=== PATIENT | female | born 1930 | race Caucasian/White ===

== ENCOUNTER 2016-09-27 18:19 | Emergency (ER) | payer OTHER ==
--- NOTE | 2016-09-27 18:29 | EDPHY ---
H & P Time Seen by Provider: 09/27/16 18:28 HPI/ROS: CHIEF COMPLAINT: Mechanical fall HISTORY OF PRESENT ILLNESS: This patient is an 86-year-old female who presents to the Emergency Department via EMS complaining of left upper extremity pain secondary to a mechanical fall shortly prior to arrival. She reports that she tripped, catching herself with her left hand. She did not hit her head when she fell. Denies trauma to abdomen, chest, neck, or back. At time of presentation, she describes moderate pain and swelling to her left wrist and mild aching pain to her left shoulder. She is unable to move her wrist without significant pain. She has no additional complaints. No pertinent medical history. No anticoagulant use. REVIEW OF SYSTEMS: Constitutional: No weakness Eyes: No visual changes or eye pain ENT: No dental trauma Neck: No pain or injury Respiratory: No shortness of breath Cardiac: No chest pain Gastrointestinal: No abdominal pain, no vomiting Back: No pain or injury Genitourinary: No hematuria Musculoskeletal: As in HPI Skin: No lacerations Neurological: No headache, no dizziness Past Medical/Surgical History: Hypothyroidism (Synthroid) Social History: Lives independently. Non-smoker. Physical Exam: General Appearance: Alert, no distress Head: Atraumatic Eyes: No conjunctival erythema, PERRLA, EOMI ENT, Mouth: No hemotypanum, no oral trauma, no bony tenderness Neck: Non-tender, full range of motion without pain Respiratory: No chest wall tenderness, lungs clear bilaterally Cardiovascular: Regular rate and rhythm Abdomen: Abdomen is soft and non tender Skin: No lacerations, abrasion to the right knee Back: No midline T/L/S tenderness Extremities: Pelvis is stable and nontender; tenderness and deformity of the left wrist, tenderness over the left shoulder and left humerus Neurological: A&Ox3, normal motor function, normal sensory exam, cranial nerves intact Psychiatric: Mood and affect normal Constitutional: Initial Vital Signs Temperature (C) 36.8 C 09/27/16 18:20 Heart Rate 77 09/27/16 18:20 Respiratory Rate 16 09/27/16 18:20 Blood Pressure 215/90 H 09/27/16 18:20 O2 Sat (%) 95 09/27/16 18:20 O2 Delivery Mode Room Air Allergies/Adverse Reactions: No Known Allergies Allergy (Unverified 09/27/16 20:38) Home Medications: Medication Instructions Recorded Hydrocodone/APAP 5/325 [Crane 1 - 2 tab PO Q4H PRN #15 tab 09/27/16 5/325] Synthroid 09/27/16 Medical Decision Making - Diagnostics Imaging Results: Humerus X-Ray 09/27/16 18:40 Impression: Nondisplaced oblique fracture coursing through the proximal humeral shaft. Shoulder X-Ray 09/27/16 18:40 Impression: Nondisplaced proximal humeral shaft fracture. 2. Left Wrist, reviews History: Pain post trauma, fall Comparison: None Findings: There is an acute Colles' fracture of the distal radius and ulnar styloid. There is dorsal angulation of the distal radius by approximately 32 grams. 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 Impression: Colles' fracture with dorsal angulation. Wrist X-Ray 09/27/16 18:40 Impression: Nondisplaced proximal humeral shaft fracture. 2. Left Wrist, reviews History: Pain post trauma, fall Comparison: None Findings: There is an acute Colles' fracture of the distal radius and ulnar styloid. There is dorsal angulation of the distal radius by approximately 32 grams. 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 Impression: Colles' fracture with dorsal angulation. Imaging: I viewed and interpreted images myself Procedures: Procedure Colles fracture reduction: Sterile prep, then bupivacaine/lidocaine injected into the left wrist. Adequate analgesia. The fracture was reduced by me using distraction and wrist flexion. The mini C-arm was used and verified adequate reduction. A sugar-tong splint was placed. In addition an upper arm was placed for the humerus fracture. The patient was placed in a sling. Procedure: Splint placement. A sugar tong splint was applied to the left wrist by the tech. After application of the splint I returned and re-examined the patient. The splint was adequately immobilizing the joint and distal to the splint the patient's circulation and sensation was intact. ED Course/Re-evaluation: 86-year-old female with no significant medical history and no anticoagulant use presents via EMS after a mechanical fall with trauma to her left wrist and shoulder. No head trauma or additional injuries. She is hypertensive st 215/90 at time of arrival. On exam, she has a visible left wrist deformity with tenderness and left shoulder and tenderness over the humerus. There are no other apparent injuries. Will proceed with x-ray of the left wrist and left humerus. X-rays discussed with the patient. Differential Diagnosis: The differential diagnosis for the patient's trauma included but was not limited to intracranial injury, long bone and pelvic bone fractures, spinal injury, intra-abdominal injury, and intra-thoracic injury. - Data Points Medications Given: Discontinued Medications Acetaminophen (Tylenol) 650 mg PO EDNOW ONE Stop: 09/27/16 20:01 Last Admin: 09/27/16 20:00 Dose: 650 mg Hydrocodone Bitart/Acetaminophen (Crane 5/325mg Prepack#6) 1 btl TAKEHOME EDNOW ONE Stop: 09/27/16 20:39 Last Admin: 09/27/16 21:22 Dose: 1 btl Departure - Departure Disposition: Home, Routine, Self-Care Clinical Impression: Humerus fracture Qualifiers: Encounter type: initial encounter Humerus Location: surgical neck Fracture type : closed Fracture morphology: 2-part Fracture alignment: nondisplaced Laterality : left Qualified Code(s): S42.225A - 2-part nondisplaced fracture of surgical neck of left humerus, initial encounter for closed fracture Colles' fracture of left radius Qualifiers: Encounter type: initial encounter Fracture type: closed Qualified Code(s): S52.532A - Colles' fracture of left radius, initial encounter for closed fracture Condition: Good Instructions: Wrist Fracture in Adults (ED), Proximal Humerus Fracture (ED) Additional Instructions: 1. Take up to 650mg Tylenol every 4-6 hours as needed for pain. 2. Take one tab Crane every 4 hours as needed for severe pain. 3. Call tomorrow to schedule a follow-up appointment with orthopedist, Dr. Collier. 4. Rest and ice your injury. Wear your sling and your splint until your follow- up appointment. 5. Return to the Emergency Department with severe pain, significantly increased swelling, changes in the sensation to your hand or fingers, pale appearing arm or hand, or for other serious concerns. Referrals: Sherley Collier MD [Medical Doctor] - As per Instructions Prescriptions: Hydrocodone/APAP 5/325 [Crane 5/325] 1 - 2 tab PO Q4H PRN #15 tab PRN Reason: Pain, Moderate Report Scribed for: Romy Edgar Report Scribed by: Josette Rose Date of Report: 09/27/16 Time of Report: 18:28 Physician Review and Approval Statement: 09/27/16 18:28 Portions of this note were transcribed by a medical technicians. I personally performed a history, physical exam, medical decision making, and confirmed accuracy of information the transcribed note.
[2016-09-27] MEDS ORDERED: ACETAMINOPHEN 325 MG TAB ONE (19:38)
[2016-09-27] MEDS ORDERED: ACETAMINOPHEN 325 MG TAB PO ONE (20:00)
[2016-09-27] MEDS ORDERED: HYDROCOD/APAP 5/325 PREPACK#6 BTL TAKEHOME ONE (20:38)
[2016-09-27 21:25] VITALS: BP 160/91; PULSE 80; RESP 14; TEMP 98.4; O2SAT 94
== END 2016-09-27 21:22 | disposition home or self-care (01) ==
LOC: EDUNIT#
PROC: 0PSJXZZ Reposition Left Radius, External Approach (ICD-10-PCS; principal; 2016-09-27)
DX: S52.532A Colles' fracture of left radius, initial encounter for closed fracture (principal); S42.225A 2-part nondisplaced fracture of surgical neck of left humerus, initial encounter for closed fracture; W01.0XXA Fall on same level from slipping, tripping and stumbling without subsequent striking against object, initial encounter; Y99.8 Other external cause status
CPT/HCPCS: 25605; 73030; 73060; 73110; 99283; A4565

== ENCOUNTER 2016-10-17 11:56 | Observation (INO) | payer OTHER ==
--- NOTE | 2016-10-17 09:34 | GHP ---
[f rep st] HISTORY AND PHYSICAL CURRENT COMPLAINT: Left wrist pain and left shoulder pain. HISTORY OF PRESENT ILLNESS: The patient is an 86-year-old female who fell yesterday. She had a red uction performed of a left radius fracture, a sling for her left proximal humerus fracture. 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 She would prefer fixation of the wrist in order to have the pote ntial to maintain as much motion as possible. PHYSICAL EXAM: EYES: Pupils equal, round, reactive to light. CHEST: Clear to auscultation. HEAR T: Regular rate and rhythm. ABDOMEN: Soft and nontender. She remains neurologically intact to th e radial, median, and ulnar nerves of the wrist. IMAGING: X-ray exam reveals a distal radius fracture that has lost its reduction into extension and a proximal humerus fracture at the surgical neck. ASSESSMENT AND PLAN: The patient is status post left proximal humerus fracture and left distal radi us fracture. She is to be brought to the operating room to undergo a closed reduction and percutane ous pinning of the left distal radius. /[id number]/MODL
[2016-10-17] MEDS ORDERED: LIDOCAINE 1% 2 ML INJ ID PRN (12:25)
[2016-10-17] MEDS ORDERED: LR 1,000 ML IV ONE (12:25)
[2016-10-17] MEDS ORDERED: BUPIVACAINE 0.5% 30 ML SDV ONE (13:14)
--- NOTE | 2016-10-17 13:27 | PDANEPAE ---
ANE History of Present Illness CRPP R wrist ANE Past Medical History - Cardiovascular History Hx Hypertension: No Hx Arrhythmias: No Hx Chest Pain: No Hx Coronary Artery / Peripheral Vascular Disease: No Hx CHF / Valvular Disease: No Hx Palpitations: No - Pulmonary History Hx COPD: No Hx Asthma/Reactive Airway Disease: No Hx Recent Upper Respiratory Infection: Yes Hx Oxygen in Use at Home: Yes O2 in Use at Home (L/minute): 2 Hx Sleep Apnea: No Sleep Apnea Screening Result - Last Documented: Negative Pulmonary History Comment: HYPOXEMIA AT HS - Neurologic History Hx Cerebrovascular Accident: No Hx Seizures: No Hx Dementia: No Neurologic History Comment: SERIES OF CLOSED HEAD INJURIES. MOST RECENT 04/2016 - Endocrine History Hx Diabetes: No Endocrine History Comment: HYPOTHYROID - Renal History Hx Renal Disorders: No - Liver History Hx Hepatic Disorders: No - Neurological & Psychiatric Hx Hx Neurological and Psychiatric Disorders: No - Cancer History Hx Cancer: No - Congenital Disorder History Hx Congenital Disorders: No - GI History Hx Gastrointestinal Disorders: No - Other Health History Other Health History: FX LT SHLDR 08/2016 PROBLEMS WITH LIMITED ROM PRIOR TO THIS. SEVERE SCOLOSIS. VISION ISSUES SINCE FALL 08/2016 - Chronic Pain History Chronic Pain: Yes (CHRONIC BACK) - Surgical History Prior Surgeries: LT TOTAL HIP 2008. LT TOTAL KNEE. HENRY CATARACT. TONSILLECTOMY ANE Review of Systems - Exercise capacity METS (RN): 4 METS ANE Patient History - Allergies Allergies/Adverse Reactions: adhesive tape Allergy (Verified 10/17/16 12:51) tapentadol [From Nucynta] Allergy (Verified 10/16/16 12:17) WAY TO STRONG FOR PATIENT - Home Medications Home Medications: Synthroid DAILY06 09/27/16 [Last Taken 10/17/16 07:30] ACETAMINOPHEN BID 10/16/16 [Last Taken 10/17/16 10:30] Aleve BID 10/16/16 [Last Taken 10/16/16 07:30] Herbal Drugs DAILY 10/16/16 [Last Taken 10/16/16 07:00] Turmeric 10/17/16 [Last Taken 10/15/16 09:00] - NPO status NPO Since - Liquids (Date): 10/17/16 NPO Since - Liquids (Time): 11:50 NPO Since - Solids (Date): 10/16/16 NPO Since - Solids (Time): 18:30 - Anes Hx Anes Hx: slow to awaken from anesthesia Hx Anesthesia Complications (with details): sensitive - Smoking Hx Smoking Status: Never smoked - Alcohol Use Alcohol Use: None ANE Labs/Vital Signs - Vital Signs Blood Pressure: 146/87 Heart Rate: 75 Respiratory Rate: 15 O2 Sat (%): 95 Height: 162.56 cm Weight: 66.678 kg ANE Physical Exam - Airway Neck exam: FROM Mallampati Score: Class 2 Mouth exam: normal dental/mouth exam - Pulmonary Pulmonary: no respiratory distress - Cardiovascular Cardiovascular: regular rate and rhythym - ASA Status ASA Status: II ANE Anesthesia Plan Anesthesia Plan: GA with mask (propofol GA, all questions answered, concern about humeral fracture and surgical positioning)
[2016-10-17] MEDS ORDERED: LIDOCAINE 2% 100 MG/5 ML SYR ONE (14:02)
[2016-10-17] MEDS ORDERED: fentaNYL 100 MCG/2 ML INJ ONE (14:02)
[2016-10-17] MEDS ORDERED: DEXAMETHASONE 4 MG/ML VIAL ONE (14:02)
[2016-10-17] MEDS ORDERED: PROPOFOL/EMULSION 500 MG/50 ML BOTTLE IV ONE (14:02)
[2016-10-17] MEDS ORDERED: ONDANSETRON 4 MG/2 ML VIAL ONE (14:02)
--- NOTE | 2016-10-17 14:06 | PDHPUP ---
History & Physical Update H&P update statement: This history and physical update is based on an assessment of the patient which was completed after admission or registration (within 24 hours), but prior to the surgery/procedure. H&P update: H&P reviewed & patient examined, no change in patient's condition since H&P completed
[2016-10-17] MEDS ORDERED: LIDOCAINE 1% 300 MG/30 ML SDV ONE (14:08)
[2016-10-17] MEDS ORDERED: LIDOCAINE 2% JELLY 5 ML TUBE ONE (14:12)
[2016-10-17] MEDS ORDERED: ceFAZolin 1 GM VIAL ONE (14:24)
[2016-10-17] MEDS ORDERED: fentaNYL 100 MCG/2 ML INJ IVP PRN ×2 (14:44)
[2016-10-17] MEDS ORDERED: ONDANSETRON 4 MG/2 ML VIAL IVP PRN ×3 (14:44→17:09)
[2016-10-17] MEDS ORDERED: ALBUTEROL 3 ML DEYVIAL IH PRN (14:44)
[2016-10-17] MEDS ORDERED: NALOXONE HCL 0.4 MG/ML INJ IVP PRN (14:44)
[2016-10-17] MEDS ORDERED: DEXAMETHASONE 4 MG/ML VIAL IVP PRN (14:44)
[2016-10-17] MEDS ORDERED: ACETAMINOPHEN 500 MG TAB PO PRN (14:44)
--- NOTE | 2016-10-17 15:04 | POSTOPPROG ---
Post Op Note Date of Operation: 10/17/16 Surgeon: Sherley Collier Anesthesiologist: dominique Anesthesia: IV Sedation Pre-op Diagnosis: l wrist fx Procedure: l wrist CRPP with fluoro Inf/Abcess present in the surg proc area at time of surgery?: No Depth: Deep Incisional (Fascial) EBL: Minimal
[2016-10-17] MEDS ORDERED: traMADol 50 MG TAB PO PRN ×2 (15:07→17:15)
[2016-10-17] MEDS ORDERED: traMADol 50 MG TAB ONE (15:12)
[2016-10-17] MEDS ORDERED: oxyCODONE IR 5 MG TAB PO PRN (17:09)
[2016-10-17] MEDS ORDERED: ONDANSETRON DISINTEGRATING 4 MG TAB PO PRN (17:09)
--- NOTE | 2016-10-17 17:35 | GHP ---
[f rep st] HISTORY AND PHYSICAL DATE OF ADMISSION: 10/17/2016 CHIEF COMPLAINT: Hypertension. HISTORY OF PRESENT ILLNESS: This is an 86-year-old female who, a couple weeks ago, was lying on the ground, stood up really quickly, had almost a syncopal event, and fell and fractured her wrist. Luna green then came in for elective surgery today. Anesthesia had noticed that her blood pressure was eleva wilton preop, and is now postoperatively in the 200 range. It was also elevated when she was in the em ergency department. Patient does not have a known history of hypertension; although, she states suleiman t her blood pressures have been in the 140s to 150s in the past. She has been switching around [facility] physicians and so has not seen one for some time. She is denying any shortness of breath, chest pain, or vision changes. 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 She denies any abdominal pain or dysuria. REVIEW OF SYSTEMS: A 10-point review of systems obtained, other than stated above is negative. PAST MEDICAL HISTORY: 1. Hypothyroidism. 2. Osteoporosis. 3. Scoliosis. 4. 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 MEDICATIONS: Reviewed. SOCIAL HISTORY: No smoking or alcohol. She is and was planning to go to [facility] for respite after her operation, but they do not take new patients after 5:00. FAMILY HISTORY: Both parents are . PHYSICAL EXAMINATION: VITAL SIGNS: Afebrile. Blood pressure is 199/86, heart rate 66, oxygen satu ration 99% on room air. GENERAL: Patient is well developed and in no apparent distress. HEENT: An icteric sclerae. Extraocular movements intact. Moist mucous membranes. NECK: Supple. No thyrome jordy. LUNGS: Good effort. Clear to auscultation bilaterally. CARDIOVASCULAR: Regular rate and r hythm. No murmurs or gallops. ABDOMEN: Positive bowel sounds. Soft, nontender, nondistended. No hepatosplenomegaly. EXTREMITIES: No clubbing, cyanosis, or edema. SKIN: Without rash. Dry and intact. NEURO: Alert and oriented x3. Moving all 4 extremities equally. PSYCH: Normal mood and a ffect. DIAGNOSTICS: No recent labs have been drawn. ASSESSMENT: The patient is an 86-year-old female presenting with persistent hypertension and unable to be admitted to respite care after her wrist surgery. PLAN: 1. Hypertension: Patient states she is very sensitive to medications and thus will give her a very small dose of Norvasc tonight and see what her blood pressure does. We could increase that tonight or tomorrow if it is not getting her blood pressure down to more comfortable levels. Will check so me basic blood work, including creatinine, tomorrow as well. 2. Recent wrist surgery. Patient would be able to go to respite tomorrow. 3. Hypothyroidism. 4. Admission: Patient will be admitted on observation status. Case discussed with Anesthesia. /[id number]/MODL
--- NOTE | 2016-10-17 18:11 | POSTANESTH ---
Post Anesthetic Evaluation Cardiovascular Status: Tx Hyper/Hypo-tension (admit for sbp >200 and dbp>90 thanks for hospitalists help) Respiratory Status: Normal, Stable Level of Consciousness/Mental Status: Can Participate in Eval Pain Control: Adequate, Prn Tx Ordered Nausea/Vomiting Control: Adequate, Prn Tx Ordered Complications Possibly Related to Anesthesia: None Noted
[2016-10-17] MEDS: ACETAMINOPHEN 500 MG TAB PO PRN (22:02)
[2016-10-18 04:54] LABS: % IMMATURE GRANULYOCYTES 0.7 % (0.0-1.1); ABSOLUTE IMMATURE GRANULOCYTES 0.04 10^3/uL (0.00-0.10); ADD DIFF? NO; ADD MORPH? NO; ADD SCAN? NO; ATYPICAL LYMPHOCYTE FLAG 0 (0-99); FRAGMENT RBC FLAG 0 (0-99); HEMATOCRIT 33.8 % (38.0-47.0); HEMOGLOBIN 11.3 g/dL (12.6-16.3); LEFT SHIFT FLG 0 (0-99); LIPEMIA HEMOLYSIS FLAG 80 (0-99); MEAN CELL HEMOGLOBIN 31.1 pg (27.9-34.1); MEAN CELL HEMOGLOBIN CONCENTR. 33.4 g/dL (32.4-36.7); MEAN CELL VOLUME 93.1 fL (81.5-99.8); MEAN PLATELET VOLUME 8.9 fL (8.7-11.7); PLATELET CLUMPS FLAG 10 (0-99); PLATELET COUNT 263 10^3/uL (150-400); RED BLOOD CELL COUNT 3.63 10^6/uL (4.18-5.33); RED CELL DISTRIBUTION WIDTH 14.4 % (11.5-15.2)
[2016-10-18 05:03] LABS: ALANINE AMINOTRANSFERASE 27 IU/L (9-52); ALBUMIN 3.4 g/dL (3.5-5.0); ALKALINE PHOSPHATASE 86 IU/L (38-126); ANION GAP 9 mEq/L (8-16); ASPARTATE AMINOTRANSFERASE 23 IU/L (14-46); BILIRUBIN,TOTAL 0.6 mg/dL (0.1-1.4); CALCIUM 9.3 mg/dL (8.5-10.4); CARBON DIOXIDE 24 mEq/l (22-31); CHLORIDE 107 mEq/L (97-110); CREATININE 0.8 mg/dL (0.6-1.0); GLOMERULAR FILTRATION RATE > 60; GLUCOSE 100 mg/dL (70-100); POTASSIUM 4.8 mEq/L (3.5-5.2); SODIUM 140 mEq/L (134-144); TOTAL PROTEIN 5.8 g/dL (6.3-8.2)
[2016-10-18] MEDS: ACETAMINOPHEN 500 MG TAB PO PRN ×2 (06:34→10:23)
[2016-10-18] MEDS ORDERED: LIOTHYRONINE SODIUM 5 MCG TAB PO SCH (09:00)
--- NOTE | 2016-10-18 09:33 | GOP ---
[f rep st] OPERATIVE REPORT DATE OF OPERATION: 10/17/2016 SURGEON: Sherley Collier MD ANESTHESIA: By mask with sedation. PREOPERATIVE DIAGNOSIS: Left distal radius fracture. POSTOPERATIVE DIAGNOSIS: Left distal radius fracture. PROCEDURE PERFORMED: Left wrist closed reduction and percutaneous pinning, with fluoroscopy. FINDINGS: INDICATIONS: This is an 86-year-old female who fell at home, was seen in the emergency room, had a displaced distal radius fracture. She was splinted. She was noted to have a significant amount of extension deformity. 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 She would like to p roceed with surgery. DESCRIPTION OF PROCEDURE: Patient brought to the operating room after the left side had been identi fied as the correct side by the patient, nurse, and physician. Once in the operating room, she had her splint removed after she had been sedated with mask anesthesia. She had a hematoma block placed at the area of the distal radius fracture. The distal radius fracture was able to be reduced. It was checked under fluoroscopy and noted to be in good position. Therefore, a 2-0 K-wire was passed through the radial styloid into the proximal shaft of the radius and exiting approximately 2 mm, and then 2 different 2-0 K-wires were passed through the dorsal portion of the fracture on the radial s charles and the ulnar side near the DRUJ and exiting approximately 1-2 mm to the anterior cortex of the proximal fragment. Once in place, fluoroscopy was used to ensure proper positioning of the wires. Once this was ensured and noted she had a stable fixation, the wires were bent close to the skin and cut short. The area around the puncture sites was dressed with Xeroform, 4 x 4's, wrapped in Webri l. The arm was completely undraped in the operating room, tourniquet removed from the arm. A short -arm volar and dorsal plaster splint was put into place with the wrist kept in 45 degrees of flexion . She then had Feliz wrap placed around the splint. She then had the left upper extremity placed wit hin a sling. She was then woken up, transferred onto a stretcher, and sent to the recovery room in good condition. TOURNIQUET TIME: Zero. /[id number]/MODL
--- NOTE | 2016-10-18 10:40 | HOSPPROG ---
Hospitalist Progress Note Assessment/Plan: Patient is an 86-year-old female who has a past medical history of a traumatic brain injury in April this year, osteoporosis and hypothyroidism. She came in for elective surgery after sustaining a wrist fracture. Her blood pressure was elevated. Today is my 1st encounter with the patient. Chart reviewed. * hypertension Patient is concerned that she is very sensitive to blood pressure medications Started on low-dose Norvasc with good results she is feeling light headed with a systolic in the 120's will decrease Norvasc dose/ suspect she does best with systolic bp in the 140 's * left distal radius fracture. Postop day 1. Status post reduction and pinning plan is to go to [facility] [place] x 3 days for Respid care/ thinking she will need more time there/lives alone *Plan: CM to see / to f/u with [facility] OT to see if she has a platform walker for home use/hopefully, can go to [facility] today/ will check later to see if she is less lightheaded Subjective: Melanie is c/o some light headedness. Objective: Vital Signs Temp Pulse Resp BP Pulse Ox 36.5 C 60 16 125/65 H 97 10/18/16 07:37 10/18/16 07:37 10/18/16 07:37 10/18/16 08:11 10/18/16 07:37 Laboratory Results 10/18/16 04:20 10/18/16 04:20 10/17/16 10/18/16 10/19/16 05:59 05:59 05:59 Intake Total 700 Output Total 1250 Balance -550 - Physical Exam Constitutional: no apparent distress, not in pain Eyes: PERRL Ears, Nose, Mouth, Throat: hearing normal Cardiovascular: regular rate and rhythym Respiratory: no respiratory distress Gastrointestinal: normoactive bowel sounds Skin: warm, other (good cms on left hand) Neurologic: AAOx3 Psychiatric: interacting appropriately, anxious ICD10 Worksheet Patient Problems: Problems Problem Status Onset Colles' fracture of left radius Acute Humerus fracture Acute
[2016-10-18 13:07] VITALS: BP 119/59; PULSE 66; RESP 18; TEMP 98.2; O2SAT 94
--- NOTE | 2016-10-18 13:27 | PDIAF ---
- Diagnosis Diagnosis: left distal radius fx s/p reduction and pinning,new dx of htn - Medication Management Discharge Medications: Medications to Continue on Transfer Acetaminophen [Tylenol ES 500 mg (*)] 1,000 mg PO Q8H PRN 10/17/16 [Last Taken 10/17/16 10:30] Levothyroxine [Synthroid 137 mcg (*)] 137 mcg PO DAILY06 10/17/16 [Last Taken 07:30] Liothyronine Sodium [Cytomel 5 mcg (*)] 5 mcg PO DAILY 10/17/16 [Last Taken 07:30] Naproxen Sodium [Aleve 220 MG (*)] 220 mg PO BID PRN 10/17/16 [Last Taken 07:30] Acetaminophen [Tylenol ES 500 mg (*)] 500 - 1,000 mg PO Q6HRS PRN #0 tab [Last Taken Unknown] amLODIPine BESYLATE [Norvasc 2.5 mg (*)] 2.5 mg PO DAILY #30 tab 10/18/16 [Last Taken Unknown] Discharge Medications: Refer to the Discharge Home Medication list for PRN reason. - Orders Services needed: Home Care, Registered Nurse, Physical Therapy, Occupational Therapy Home Care Face to Face: I certify that this patient was under my care and that I had the required [id number] encounter meeting the encounter requirements on the discharge day. My findings support the fact that the patient is homebound as defined in CMS Chapter 7 Medicare Benefits Manual 30.1.1, The condition of the patient is such that there exists a normal inability to leave home and consequently, leaving home would require a considerable and taxing effort. Equipment: recommending a platform walker Additional: hold norvasc for systolic bp <125 - Follow Up Care Current Providers and Referrals: FERNANDO HITCHCOCK [Primary Care Provider] - Selwyn Ozuna MD [Medical Doctor] -
--- NOTE | 2016-10-19 00:10 | GDS ---
[f rep st] DISCHARGE SUMMARY DISCHARGE DIAGNOSES: 1. Uncontrolled hypertension. 2. Left distal radius fracture status post reduction and pinning. Briefly, patient is an 86-year-old female, who has a past medical history of a traumatic brain injury in April of this year, osteoporosis and hypothyroidism. She came in for elective surgery after sustaining a wrist fracture. The hospitalist team was asked to evaluate her in regard to her hypertension. Today, her blood pressure is much improved. She will be discharged to [facility] and further followup with Dr. Sherley Collier. HOSPITAL COURSE: 1. Hypertension. Blood pressure is much better. It may be a bit low for her. I reduced the Norvasc dosing and told her to hold it if her systolic is less than 125. 2. Left distal radius fracture. She is postop day #1 status post reduction and pinning. She will go to [facility]. PENDING LABS AND TESTS: None. CONDITION AT DISCHARGE: Stable. Blood pressure is 125/65, O2 sats on room air 97%, respiratory rate is 16, pulse is 60, temperature 36.5 Celsius. DISCHARGE MEDICATIONS: Please see the EMR. DISCHARGE INSTRUCTIONS: 1. Recommend that she follow up with Dr. Ozuna. She would like close monitoring of her blood pressure. She is concerned about taking medications. 2. Stay well hydrated. 3. If she develops fever, chills, chest pain or shortness of breath, return to the ER. /[id number]/MODL MTDD
[2016-10-19] MEDS ORDERED: LEVOTHYROXINE 137 MCG TAB PO SCH (06:00)
== END 2016-10-18 16:09 ==
LOC: FSGY 11:56 → F3N 17:09
PROVIDERS: ADMIT Internal Medicine; ATTEND Internal Medicine
PROC: 0PSJ34Z Reposition Left Radius with Internal Fixation Device, Percutaneous Approach (ICD-10-PCS; principal; 2016-10-17 13:15)
DX: S52.502A Unspecified fracture of the lower end of left radius, initial encounter for closed fracture (principal); S42.215A Unspecified nondisplaced fracture of surgical neck of left humerus, initial encounter for closed fracture; W19.XXXA Unspecified fall, initial encounter; Y92.019 Unspecified place in single-family (private) house as the place of occurrence of the external cause; Y99.8 Other external cause status; E03.9 Hypothyroidism, unspecified; I10 Essential (primary) hypertension; M81.0 Age-related osteoporosis without current pathological fracture; M41.9 Scoliosis, unspecified; Z87.820 Personal history of traumatic brain injury; Z96.642 Presence of left artificial hip joint; Z96.652 Presence of left artificial knee joint
CPT/HCPCS: 25606; 97161; 97166; 97535; C1769; G8978; G8979; G8987; G8988; J0690; J1100; J2001; J2405; J2704; J3010; G8989-GO-CL

== ENCOUNTER 2016-10-21 13:42 | Emergency (ER) | payer OTHER ==
--- NOTE | 2016-10-21 14:19 | CPEKG ---
Heart Rate: 89 RR Interval: 674 P-R Interval: 164 QRSD Interval: 98 QT Interval: 388 QTC Interval: 473 P [place]: 24 QRS [place]: -56 T Wave [place]: 58 EKG Severity - ABNORMAL ECG - EKG Impression: SINUS RHYTHM EKG Impression: LEFT ANTERIOR FASCICULAR BLOCK Electronically Signed By: Selwyn Ozuna 23-Oct-2016 14:33:00
--- NOTE | 2016-10-21 14:57 | EDPHY ---
H & P Time Seen by Provider: 10/21/16 14:14 HPI/ROS: CHIEF COMPLAINT: Elevated blood pressure HISTORY OF PRESENT ILLNESS: 86-year-old female presents to the emergency department by private vehicle with family at bedside with history of elevated blood pressure. The patient was seen in the emergency department approximately 2 weeks ago after she had a mechanical fall and sustained a left humerus and left wrist fracture. She had operative repair by Dr. Sherley Collier 4 days ago on her left wrist. She is recovering at [facility] and has been having her blood pressure checked frequently. Apparently since the surgery, her blood pressure has been elevated over 200. She was started on Norvasc 2.5 mg in the hospital when she was recovering from surgery just a few days ago. She is concerned that her blood pressure is still elevated. She was sent to the emergency department for evaluation. She has no chest pain or difficulty breathing. No headache. REVIEW OF SYSTEMS: Constitutional: No fever, no chills. Eyes: No double or blurry vision. ENT: No sore throat. Respiratory: No cough, no shortness of breath. Cardiac: No chest pain. Gastrointestinal: No abdominal pain, vomiting or diarrhea. Genitourinary: No dysuria. Musculoskeletal: No neck or back pain. Skin: No rashes. Neurological: No headache. Past Medical/Surgical History: Hypothyroidism with recent decrease in her levothyroxine, left humerus and left wrist fracture. Surgical repair of left wrist by Dr. 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 Family at bedside. Blood pressure 146/ 94, 95% on room air. Afebrile. No apparent distress. Eyes: Pupils equal and round. Extraocular motions are all intact. ENT: Mouth: Mucous membranes moist. Respiratory: No wheezing, rhonchi, or rales, lungs are clear to auscultation. Cardiovascular: Regular rate and rhythm. Gastrointestinal: Abdomen is soft and nontender, no masses, no rebound or guarding, bowel sounds normal. Neurological: Alert and oriented x 3, cranial nerves II through XII grossly intact Skin: Warm and dry, no rashes. Musculoskeletal: Nontender to palpate along the cervical, thoracic or lumbar spine. Neck is supple. Extremities: Limited range of motion of the left upper extremity with Ortho Glass splint applied to the left wrist and left sling noted. Full range of motion of her lower extremities and her right upper extremity. Psychiatric: Patient is oriented X 3, there is no agitation. Constitutional: Initial Vital Signs Temperature (C) 36.8 C 10/21/16 13:48 Heart Rate 97 10/21/16 13:48 Respiratory Rate 16 10/21/16 13:48 Blood Pressure 146/94 H 10/21/16 13:48 O2 Sat (%) 95 10/21/16 13:48 O2 Delivery Mode Room Air Allergies/Adverse Reactions: adhesive tape Allergy (Verified 10/17/16 12:51) tapentadol [From Nucynta] Allergy (Verified 10/16/16 12:17) WAY TO STRONG FOR PATIENT Home Medications: Medication Instructions Recorded Acetaminophen [Tylenol ES 500 mg 1,000 mg PO Q8H PRN 10/17/16 (*)] Levothyroxine [Synthroid 137 mcg 137 mcg PO DAILY06 10/17/16 (*)] Liothyronine Sodium [Cytomel 5 mcg 5 mcg PO DAILY 10/17/16 (*)] Naproxen Sodium [Aleve 220 MG (*)] 220 mg PO BID PRN 10/17/16 Acetaminophen [Tylenol ES 500 mg 500 - 1,000 mg PO Q6HRS PRN #0 tab 10/18/16 (*)] amLODIPine BESYLATE [Norvasc 2.5 2.5 mg PO DAILY #30 tab 10/18/16 mg (*)] Medical Decision Making ED Course/Re-evaluation: 86-year-old female presents to the emergency department with concerns about elevated blood pressure. The patient has a history of recently starting Norvasc 2.5 mg. The patient has no physical complaints currently other than the pain in her left shoulder and left wrist from her fall 2 weeks ago. She recently had surgery in her left wrist. The case was discussed with Dr. Robinson Yu, secondary supervising physician, who did not directly evaluate the patient but agrees with treatment and plan. Agrees with discharging the patient home. She will follow up with her primary care provider as well as floating derrick operator. The patient is requesting follow up with Dr. Selwyn Ozuna. I spoke with the on-call floating derrick operator, Dr. Terry Mandel, and he recommended that the patient call and speak with Dr. Ozuna's nurse, Radha, to arrange for a follow-up appointment. Patient was comfortable with this plan. EKG was interpreted by Dr. Robinson Yu, see interpretation in trace master. Differential Diagnosis: Including but not limited to hypertension urgency, hypertension emergency, myocardial infarction, acute kidney injury Departure - Departure Disposition: Home, Routine, Self-Care Clinical Impression: Hypertension Qualifiers: Hypertension type: unspecified Qualified Code(s): I10 - Essential (primary) hypertension Condition: Good Instructions: Hypertension (ED) Additional Instructions: When you call [place] [facility], asked to speak with Radha who is Dr. Samano reveals nurse and tell them that you were seen in the emergency department and were told to follow up with Dr. Selwyn Ozuna regarding your blood pressure. Continue taking Norvasc as prescribed. Bring your blood pressure cuff with you to see your primary care provider and when you see the floating derrick operator to make sure that is calibrated correctly. Referrals: FERNANDO HITCHCOCK [Primary Care Provider] - As per Instructions
[2016-10-21 15:58] VITALS: BP 149/75; PULSE 81; RESP 18; TEMP 98.6; O2SAT 94
== END 2016-10-21 15:59 | disposition home or self-care (01) ==
DX: I10 Essential (primary) hypertension (principal)

== ENCOUNTER 2016-11-13 22:40 | Emergency (ER) | payer OTHER ==
[2016-11-13 23:08] VITALS: TEMP 98.2
--- NOTE | 2016-11-14 | EDPHY ---
H & P Stated Complaint: HAD CAST CHANGED TODAY,SWELLING HAND NOW, ALSO SWELLING FEET Time Seen by Provider: 11/13/16 23:35 HPI/ROS: Chief Complaint: Left hand swelling HPI: 86-year-old woman presenting with left hand swelling after having her cast change today at her orthopedics office. Patient has sustained a fall risk fracture and has hardware in place. Does evaluated today and her orthopedist's office and had her arm Re casted. Since then she has had increasing swelling in that hand. No numbness or tingling. No fevers or chills. Patient is also complaining some mild bilateral ankle swelling which has since resolved. ROS: 10 point Review of Systems is negative except as noted in the HPI. Social History: No smoking, no alcohol, no recreational drug use Family History: non-contributory Physical Exam: Gen: Awake, Alert, No Distress HEENT: Nose: no rhinorrhea Eyes: PERRLA, EOMI Mouth: Moist mucosa Neck: Supple, no JVD Chest: nontender, lungs clear to auscultation Heart: S1, S2 normal, no murmur Abd: Soft, non-tender, no guarding Back: no CVA tenderness, no midline tenderness Ext: no lower extremity edema, wrist cast is in place. There is mild swelling of the digits. There is no erythema. There is good capillary refill. Sensations intact. Skin: no rash Neuro: CN II-XII intact, Sensation grossly intact, Strength 5/5 in bilateral upper and lower extremities - Personal History Current Tetanus/Diphtheria Vaccine: Unsure - Medical/Surgical History Hx Asthma: No Hx Chronic Respiratory Disease: No Hx Diabetes: No Hx Cardiac Disease: No Hx Renal Disease: No Hx Cirrhosis: No Hx Alcoholism: No Hx HIV/AIDS: No Hx Splenectomy or Spleen Trauma: No Other PMH: PMH: HTN, hypothyriod, LEFT KNEE, LEFT HIP, TONSILS, FX LEFT HUMEROUS, FX LEFT FOREARM - Social History Smoking Status: Never smoked Constitutional: Initial Vital Signs Temperature (C) 36.8 C 11/13/16 22:40 Heart Rate 96 11/13/16 22:40 Respiratory Rate 22 H 11/13/16 22:40 Blood Pressure 205/105 H 11/13/16 22:40 O2 Sat (%) 95 11/13/16 22:40 O2 Delivery Mode Room Air Allergies/Adverse Reactions: adhesive tape Allergy (Verified 10/17/16 12:51) tapentadol [From Nucynta] Allergy (Verified 10/16/16 12:17) WAY TO STRONG FOR PATIENT METALS Allergy (Uncoded 11/13/16 22:59) Home Medications: Medication Instructions Recorded Acetaminophen [Tylenol ES 500 mg 1,000 mg PO Q8H PRN 10/17/16 (*)] Levothyroxine [Synthroid 137 mcg 137 mcg PO DAILY06 10/17/16 (*)] Liothyronine Sodium [Cytomel 5 mcg 5 mcg PO DAILY 10/17/16 (*)] Naproxen Sodium [Aleve 220 MG (*)] 220 mg PO BID PRN 10/17/16 Acetaminophen [Tylenol ES 500 mg 500 - 1,000 mg PO Q6HRS PRN #0 tab 10/18/16 (*)] amLODIPine BESYLATE [Norvasc 2.5 2.5 mg PO DAILY #30 tab 10/18/16 mg (*)] Medical Decision Making ED Course/Re-evaluation: Patient's cast has been split. She has been re-dressed with Feliz wrap. She is feeling better. She is discharged with follow up with Orthopedics. Departure - Departure Disposition: Home, Routine, Self-Care Clinical Impression: Hand swelling Condition: Good Instructions: Cast Care (ED) Additional Instructions: Follow up with your orthopedic surgeon tomorrow. Return emergency depart for increasing chest pain, shortness of breath, worsening headache, nausea, vomiting, numbness, tingling, or any other concerns. Referrals: Shaunna Bobby MD [Primary Care Provider] - As per Instructions Sherley Collier MD [Medical Doctor] - As per Instructions
[2016-11-14 00:58] VITALS: BP 163/80; PULSE 80; RESP 20; O2SAT 97
== END 2016-11-14 01:04 | disposition home or self-care (01) ==
LOC: EDUNIT#
DX: M79.89 Other specified soft tissue disorders (principal); I10 Essential (primary) hypertension

== ENCOUNTER 2016-11-16 18:18 | Emergency (ER) | payer OTHER ==
[2016-11-16 18:35] VITALS: BP 198/107; PULSE 85; RESP 14; TEMP 98.4; O2SAT 97
[2016-11-16] MEDS ORDERED: diphenhydrAMINE 25 MG CAP PO ONE (19:01)
--- NOTE | 2016-11-16 19:01 | EDPHY ---
H & P Time Seen by Provider: 11/16/16 18:21 HPI/ROS: CHIEF COMPLAINT: Facial and leg swelling and wrist swelling HISTORY OF PRESENT ILLNESS: This 86-year-old woman sustained a fall and left wrist and humerus fracture and had surgery on her left wrist on October 17. She was seen here on the 21 of October for hypertension and then on the 13 of November for left hand swelling. The patient is here tonight because she thinks she is having allergic reaction to the metal pins placed in her left wrist for her fracture. She was at the surgeon's office this week on Saturday but the physician was not available and she told me she did not have the hardware removed because she wanted the physician to do it and not the PA. Today she is here because she has some increased left forearm swelling. She feels like both of her legs have been swelling for the last month, she feels like she has some facial swelling and that her cheeks are bright red. She does not have tongue lip or throat swelling, trouble breathing, trouble swallowing, fever or chills. No abdominal pain cramping or vomiting. Symptoms moderate. No medications. She says she feels like she is "on fire in side of my body." REVIEW OF SYSTEMS: Eye: no change in vision ENT: no sore throat Cardiac: no chest pain or syncope Pulmonary: no cough or SOB Abdomen: no vomiting, diarrhea, abdominal pain Musculoskeletal: As in HPI Skin: No urticaria. Some redness on her cheeks. Neuro: no headache Constitutional: no fever : no urinary symptoms, normal urination. A comprehensive 10 point review of systems is otherwise negative aside from elements mentioned in the history of present illness. PAST MEDICAL HISTORY: Includes hypertension, thyroid disease, knee and hip surgery. Humerus fracture. Social history: Here with friend, nonsmoker General Appearance: Alert and conversant, cooperative. Eyes: No scleral icterus. ENT, Mouth: Normal mucous membranes. No angioedema and uvula normal. Respiratory: Normal respiratory effort, breath sounds equal, lungs are clear to auscultation. No wheezing. Cardiovascular: Regular rate and rhythm. Gastrointestinal: Abdomen is soft and non tender. Neurological: Alert and oriented x3. Normally conversant. Normal motor and sensory in both hands and both feet. Skin: Patient has a little bit of redness in both cheeks but no urticaria seen. No welts or hives. Face/cheeks not tender or hot. Musculoskeletal: 1+ bilateral peripheral edema symmetric, no calf tenderness, negative Homans. She has some edema on her left arm proximal to the cast and distally in her fingers but normal active and passive range of motion of all fingers and normal capillary refill and normal sensation to light touch. Psychiatric: Not agitated. Emergency Department course/MDM: 185: Discussed with Jr from Orthopedics.; recommended office follow-up next week, no action tonight. Oral Benadryl 25 mg. Patient 5 years ago after hip surgery had what she feels was an allergic reaction to metal which was only stopped by a medication prescribed by [facility] the name of which she can't remember, and by her tribal judge. I do not feel she has evidence of anaphylaxis tonight. I think it is reasonable for her to take oral Benadryl, as she has some mild face redness and swelling and she believes this is allergic reaction. I don't think her facial redness is from infection or cellulitis or erysipelas. I think it is unlikely that her bilateral symmetric lower extremity swelling represents DVT or CHF or renal problem. Smoking Status: Never smoked Constitutional: Initial Vital Signs Temperature (C) 36.9 C 11/16/16 18:33 Heart Rate 85 11/16/16 18:33 Respiratory Rate 14 11/16/16 18:33 Blood Pressure 198/107 H 11/16/16 18:33 O2 Sat (%) 97 11/16/16 18:33 O2 Delivery Mode Room Air Allergies/Adverse Reactions: adhesive tape Allergy (Verified 10/17/16 12:51) tapentadol [From Nucynta] Allergy (Verified 10/16/16 12:17) WAY TO STRONG FOR PATIENT METALS Allergy (Uncoded 11/13/16 22:59) Home Medications: Medication Instructions Recorded Acetaminophen [Tylenol ES 500 mg 1,000 mg PO Q8H PRN 10/17/16 (*)] Levothyroxine [Synthroid 137 mcg 137 mcg PO DAILY06 10/17/16 (*)] Liothyronine Sodium [Cytomel 5 mcg 5 mcg PO DAILY 10/17/16 (*)] Naproxen Sodium [Aleve 220 MG (*)] 220 mg PO BID PRN 10/17/16 Acetaminophen [Tylenol ES 500 mg 500 - 1,000 mg PO Q6HRS PRN #0 tab 10/18/16 (*)] amLODIPine BESYLATE [Norvasc 2.5 2.5 mg PO DAILY #30 tab 10/18/16 mg (*)] Medical Decision Making - Data Points Medications Given: Discontinued Medications Diphenhydramine HCl (Benadryl) 25 mg PO EDNOW ONE Stop: 11/16/16 19:02 Last Admin: 11/16/16 19:05 Dose: 25 mg Departure - Departure Disposition: Home, Routine, Self-Care Clinical Impression: Hypertension Colles' fracture of left radius Qualifiers: Encounter type: subsequent encounter Fracture type: closed Fracture healing: with routine healing Qualified Code(s): S52.532D - Colles' fracture of left radius, subsequent encounter for closed fracture with routine healing Condition: Good Instructions: Hypertension (ED) Additional Instructions: OK to take benadryl 25 mg by mouth up to 3 times a day for the next 5 days. Return if you get trouble breathing, trouble swallowing, swelling in your lips face throat or tongue. Referrals: Shaunna Bobby MD [Primary Care Provider] - As per Instructions Sherley Collier MD [Medical Doctor] - 2-3 days, call for appt. (see Dr. Collier early next week in the office)
== END 2016-11-16 19:23 | disposition home or self-care (01) ==
LOC: EDUNIT#
DX: I10 Essential (primary) hypertension (principal); S52.532D Colles' fracture of left radius, subsequent encounter for closed fracture with routine healing; W19.XXXD Unspecified fall, subsequent encounter; Y82.8 Other medical devices associated with adverse incidents

== ENCOUNTER 2016-11-19 10:04 | Emergency (ER) | payer OTHER ==
[2016-11-19 10:12] VITALS: RESP 14
--- NOTE | 2016-11-19 10:22 | EDPHY ---
H & P Smoking Status: Never smoked Time Seen by Provider: 11/19/16 10:18 HPI/ROS: HPI: Ms. Graham is a 86 yrs, female who presents with Chief Complaint: Fall Location: Quality: Fall Duration: 30 minutes prior to arrival Signs and Symptoms: No loss of consciousness, no dizziness, no nausea, no vomiting, no chest pain, no shortness of breath, no back pain, no abdominal pain Timing: Sudden Severity: Context: Patient presents status post accidental [facility] the [facility]. Patient denies any loss of consciousness. Reports that she was heading back from breakfast, using her cane to aid in ambulation, because she has a cast on her left wrist from radial fracture, she put her cane to the side and tried to push open the door the right hand. She reports that she was very heavy and she lost about. Falling backwards and hitting her head on the edge of the wall. She compliant of mild pain where the laceration occurred, posterior neck pain, tailbone pain. Patient's history is complicated as last month she experienced a fall secondary to orthostatic hypotension is sustained a left humerus fracture as well as a left distal radial fracture she is status post ORIF and wearing a cast. In fact she has an appointment with orthopedics for follow-up tomorrow morning as well as acupuncture appointment this evening at 5:00 p.m. that she is adamant that she will not miss. 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 Modifying Factors: Tylenol at a.m. Comment: ROS: Eyes: No blurred vision Respiratory: No shortness of breath, no cough Cardiovascular: No chest pain Gastrointestinal: No nausea, no vomiting no diarrhea Genitourinary: No dysuria Extremities: No myalgias Neurologic: No weakness, no numbness Skin: No rashes Hematologic: No bruising, + bleeding MEDICAL/SURGICAL HISTORY: Hypertension, hypothyroidism. (Iqra Ahmadi) Social History: . [facility] jail. (Iqra Ahmadi) Physical Exam: CONSTITUTIONAL: Pleasant extremely talkative white elderly female, awake and alert, no obvious distress HEENT: 1.5 inch C shaped scalp laceration on the right parietal area, and normocephalic, PERRL, EOMI. Tympanic membranes clear. No TM rupture. Nares patent without septal hematoma. Oropharynx clear, no exudate and moist pink mucosa. Airway patent. NECK: Supple, full range of motion, no midline tenderness, mild bilateral paraspinous reproducible tenderness, No lymphadenopathy. No meningismus. Cardiovascular: Normal S1/S2, regular rate, regular rhythm, without murmur rub or gallop. PULMONARY/CHEST: Symmetrical and nontender. Clear to auscultation bilaterally. Good air movement. No accessory muscle usage. ABDOMEN: Soft, nondistended, nontender, no rebound, no guarding, no peritoneal signs, no masses or organomegaly. No CVAT. EXTREMITIES: 2/2 pulses, no deformities, no clubbing, no cyanosis or edema. Right wrist in a cast. Right shoulder shows tenderness at the AC joint pain with arc 90 in above. Deltoid strength is 4/5. Relatively good internal rotation and external rotation. BACK: No paraspinous muscle tenderness, no midline deformities, mild tenderness over the coccyx without any bruising. Deep tendon reflexes 2/2. NEUROLOGICAL: no focal neuro deficits. GCS 15. SKIN: Warm and dry, no erythema. no rash. Good capillary refill. (Iqra Ahmadi) Constitutional: Initial Vital Signs Temperature (C) 36.3 C 11/19/16 10:07 Heart Rate 93 11/19/16 10:07 Respiratory Rate 14 11/19/16 10:07 Blood Pressure 193/89 H 11/19/16 10:07 O2 Sat (%) 97 11/19/16 10:07 O2 Delivery Mode Room Air Allergies/Adverse Reactions: adhesive tape Allergy (Verified 10/17/16 12:51) tapentadol [From Nucynta] Allergy (Verified 10/16/16 12:17) WAY TO STRONG FOR PATIENT METALS Allergy (Uncoded 11/13/16 22:59) Home Medications: Medication Instructions Recorded Benadryl 11/19/16 Cytomel 11/19/16 Levothyroxine 11/19/16 Tylenol 11/19/16 Medical Decision Making - Diagnostics Imaging Results: Imaging Impressions Cervical Spine CT 11/19/16 10:14 Impression: Senescent features, with no acute intracranial abnormality identified on this unenhanced CT evaluation. UNENHANCED CT SCAN OF THE CERVICAL SPINE Technique: A multidetector unenhanced helical CT scan was obtained from the clivus caudally through the upper thoracic spine, with images reformatted at 1.00 mm increments, and are reviewed in soft tissue, bone, and lung windows. Parasagittal and paracoronal reconstructed images are reviewed on the workstation. The DFOV is cm. A dose reduction protocol was used. Findings: There is a cervical-thoracic junction scoliosis, and there appears to have been fusion of the left C2-C3 facet joint, partial fusion of the left C6- C7 facet joint, and fusion of the left C7-T1 (and possible partial fusion of the right C7-T1) facet joints. There may also be partial fusion of the left T1-2 , T2-T3, and T3-T4 facet joints (seen on the sagittal sequences). Multilevel degenerative facet arthropathy is noted. The bones are diffusely demineralized, however there is no acute vertebral body compression fracture. There are trace degenerative spondylolistheses seen at C3-C4, C4-C5, C5-C6, C6-C7, and at C7-T1 , with accompanying degenerative disk space narrowing. The lateral masses of C1 and C2 are aligned, and the base and the tip of the dens are normal. The predental space is normal. The craniocervical junction is normal. There is no focal disk herniation appreciated, nor is there any prevertebral or epidural hematoma identified. There are bilateral neuroforaminal stenoses at C3-C4, C4-C5 , C5-C6, C6-C7, and C7-T1, and the greatest degrees of central canal stenoses are seen at the C4-C5 and the C5-C6 levels. The visualized prevertebral soft tissues are unremarkable. The lung apices are clear. The hydraulic rockbreaker operator topogram demonstrates a proximal left humeral fracture, which will be better evaluated on dedicated radiographs. Impression: 1. Multilevel advanced degenerative features as-detailed, with no convincing acute cervical osseous abnormality. 2. Proximal left humeral diaphyseal fracture, to be better evaluated on subsequent dedicated conventional radiographs. If there is further clinical concern regarding the patient's symptoms, correlative MR imaging could be considered, if otherwise not contraindicated. Findings were discussed with Iqra Ahmadi PA-C at 11:41 AM, on 11/19/2016. Head CT 11/19/16 10:14 Impression: Senescent features, with no acute intracranial abnormality identified on this unenhanced CT evaluation. UNENHANCED CT SCAN OF THE CERVICAL SPINE Technique: A multidetector unenhanced helical CT scan was obtained from the clivus caudally through the upper thoracic spine, with images reformatted at 1.00 mm increments, and are reviewed in soft tissue, bone, and lung windows. Parasagittal and paracoronal reconstructed images are reviewed on the workstation. The DFOV is cm. A dose reduction protocol was used. Findings: There is a cervical-thoracic junction scoliosis, and there appears to have been fusion of the left C2-C3 facet joint, partial fusion of the left C6- C7 facet joint, and fusion of the left C7-T1 (and possible partial fusion of the right C7-T1) facet joints. There may also be partial fusion of the left T1-2 , T2-T3, and T3-T4 facet joints (seen on the sagittal sequences). Multilevel degenerative facet arthropathy is noted. The bones are diffusely demineralized, however there is no acute vertebral body compression fracture. There are trace degenerative spondylolistheses seen at C3-C4, C4-C5, C5-C6, C6-C7, and at C7-T1 , with accompanying degenerative disk space narrowing. The lateral masses of C1 and C2 are aligned, and the base and the tip of the dens are normal. The predental space is normal. The craniocervical junction is normal. There is no focal disk herniation appreciated, nor is there any prevertebral or epidural hematoma identified. There are bilateral neuroforaminal stenoses at C3-C4, C4-C5 , C5-C6, C6-C7, and C7-T1, and the greatest degrees of central canal stenoses are seen at the C4-C5 and the C5-C6 levels. The visualized prevertebral soft tissues are unremarkable. The lung apices are clear. The hydraulic rockbreaker operator topogram demonstrates a proximal left humeral fracture, which will be better evaluated on dedicated radiographs. Impression: 1. Multilevel advanced degenerative features as-detailed, with no convincing acute cervical osseous abnormality. 2. Proximal left humeral diaphyseal fracture, to be better evaluated on subsequent dedicated conventional radiographs. If there is further clinical concern regarding the patient's symptoms, correlative MR imaging could be considered, if otherwise not contraindicated. Findings were discussed with Iqra Ahmadi PA-C at 11:41 AM, on 11/19/2016. Shoulder X-Ray 11/19/16 10:20 Impression: 1. Subacute left humeral neck fracture demonstrating callus formation without bony fusion, although fracture fragments appear more displaced than previous study. 2. Severe osteoarthritis of left glenohumeral joint. Face CT 11/19/16 10:49 Impression: There is no acute osseous abnormality identified. Findings were discussed with Iqra Ahmadi PA-C at 13:41, on 11/19/2016. Procedures: Procedure: Laceration repair. Verbal consent was obtained from the patient. The simple, deep 1.5 c-shaped laceration on the right parietal scalp was anesthetized in the usual fashion using 5 mL 1% Lidocaine with epinephrine. The wound was irrigated, draped and explored to its base with a gloved finger. There were no deep structures involved. No tendon injury was identified. The wound was repaired with #9, 4- 0 Prolene in simple interrupted pattern. Good hemostasis was achieved and patient tolerated procedure well. The procedure was performed by myself. (Iqra Ahmadi) ED Course/Re-evaluation: His CT scan, CT cervical scan, sacral coccyx x-ray, left shoulder x-ray ordered Patient declined any pain medications at this time she had Tylenol at 8:00 a.m. Scalp laceration will be repaired with sutures instead of darryl due to metal allergy Fall mechanical in nature After 1 hour patient now complaining of right jaw pain, no malocclusion. Mild tenderness in the right TMJ joint. No dental loosening/fracture. CT Head per radiologist verbal report no acute intracranial process including intracranial hemorrhage CT cervical scan per radiologist verbal report, multi level degenerative changes , facet fusion, no acute fracture dislocation CT maxillofacial scan no acute fracture, mandible dislocation Left shoulder x-ray shows fracture comminuted oblique of the proximal left humeral neck; when compared to previous study shows slightly more displaced; placed in sling. For coccyx x-rays reviewed with Dr. Mccrary shows no fracture No signs of neurovascular compromise, intracranial hemorrhage, syncope, orthostatic hypotension. crop grain or livestock farm manager consult as patient is currently at [facility] and would benefit from a higher level care as she is a fall risk. Physical therapy referral made per social work recommendation. Close follow up with Orthopedics tomorrow and primary care provider on Saturday (Iqra Ahmadi) The patient was evaluated and managed by the physician's assistant associate professor. My cosignature indicates that I reviewed the chart and I agree with the findings and plan of care as documented. I am the secondary supervising physician. ( Katia Mccrary) Differential Diagnosis: Dizziness including but not limited to peripheral and central causes of vertigo , orthostatic causes including dehydration, and blood loss. Back pain including but not limited to muscular pain, herniated disc, spine fracture, intra-abdominal causes and urinary tract infection. (Iqra Ahmadi) - Data Points Medications Given: Discontinued Medications Diphenhydramine HCl (Benadryl) 25 mg PO EDNOW ONE Stop: 11/19/16 13:56 Last Admin: 11/19/16 14:00 Dose: 25 mg Departure - Departure Disposition: Home, Routine, Self-Care Clinical Impression: Degenerative cervical disc Laceration of scalp without complication Qualifiers: Encounter type: initial encounter Qualified Code(s): S01.01XA - Laceration without foreign body of scalp, initial encounter Accidental fall Qualifiers: Encounter type: initial encounter Qualified Code(s): W19.XXXA - Unspecified fall, initial encounter Closed fracture of neck of left humerus Qualifiers: Encounter type: subsequent encounter Fracture healing: with delayed healing Qualified Code(s): S42.212G - Unspecified displaced fracture of surgical neck of left humerus, subsequent encounter for fracture with delayed healing Condition: Fair Instructions: Laceration (ED) Additional Instructions: Keep wound dry for 48 hours. After 48 hours patient may wash hair and get incision wet. Pat dry after washing hair. Remove sutures in 7 days. Fall risk precautions. Patient was offered admission indwelling refuse also had offered for higher level of care and refused. Physical therapy order for patient as well as fall precautions. Referrals: Patient,NotPresent [Unknown] - As per Instructions Sherley Collier MD [Medical Doctor] - 11/20/16 Shaunna Bobby MD [Primary Care Provider] - 11/23/16
[2016-11-19] MEDS ORDERED: diphenhydrAMINE 25 MG CAP PO ONE (13:55)
[2016-11-19] MEDS ORDERED: ACETAMINOPHEN 325 MG TAB PO ONE (14:53)
[2016-11-19 16:10] VITALS: BP 168/78; PULSE 87; TEMP 98.1; O2SAT 95
== END 2016-11-19 16:09 | disposition home or self-care (01) ==
LOC: EDUNIT#
PROC: 0HQ0XZZ Repair Scalp Skin, External Approach (ICD-10-PCS; principal; 2016-11-19)
DX: S01.01XA Laceration without foreign body of scalp, initial encounter (principal); S42.212G Unspecified displaced fracture of surgical neck of left humerus, subsequent encounter for fracture with delayed healing; M50.30 Other cervical disc degeneration, unspecified cervical region; I10 Essential (primary) hypertension; W01.198A Fall on same level from slipping, tripping and stumbling with subsequent striking against other object, initial encounter; Y99.8 Other external cause status; Y93.89 Activity, other specified
CPT/HCPCS: 12002; 70450; 70486; 71101; 72125; 72220; 73030; A4565

== ENCOUNTER → 2017-10-03 | Outpatient (CLI) | payer OTHER | DX: R00.2 Palpitations (principal) ==